=== PATIENT | female | born 1990 | race Caucasian/White ===

== ENCOUNTER → 2017-04-19 | Outpatient (CLI) | payer MEDICAID ==
[2017-04-19 12:07] LABS: HEMOGLOBIN 15.9 g/dL (12.2-16.2); LYMPH # 1.9 K/mm3 (0.7-4.5); LYMPH % 39.8 % (10-50.0)
[2017-04-19 13:25] LABS: BUN 8 mg/dL (7-18); GFR (ESTIMATED) 121 ML/MIN (59-)
[2017-04-20 08:50] LABS: HIV Screen 4th Generation wRfx Non Reactive (Non Reactive); Hep B Surface Ab, Qual Reactive (.); Hep C Virus Ab <0.1 (0.0-0.9)
== END ==
LOC: LAB 10:59
PROVIDERS: Preventive Medicine Addiction Medicine
DX: Z86.59 Personal history of other mental and behavioral disorders (principal)
CPT/HCPCS: G0432